=== PATIENT | female | born 1985 | race African-American/Black ===

== ENCOUNTER 2018-10-10 12:07 | Emergency (ER) | payer MEDICAID ==
[~2018-10-10] VITALS: Wt 106.0 kg
[~2018-10-10 12:07] MED LIST: PREN1TAB49
[2018-10-10] MEDS ORDERED: KETOROLAC 30 MG INJ IM STA (14:00)
[2018-10-10] MEDS ORDERED: IBUP-1542 PO (14:26)
--- NOTE | 2018-10-10 17:15 | ERD ---
ER Documentation Chief Complaint Chief Complaint ABD PAIN X 2 DAYS HPI 33-year-old female presents for abdominal pain times 2 days. The pain is located in the periumbilical area. She notes that it is intermittent, rated 6 out of 10, pain described as dull. She admits to some nausea, denies vomiting or diarrhea. Denies any fevers or chills. No other complaints. ROS All systems reviewed and are negative except as per history of present illness. Medications Home Meds Active Scripts Ibuprofen* (Motrin*) 600 Mg Tab, 600 MG PO Q6H PRN for PAIN AND OR ELEVATED TEMP, #30 TAB Prov:MADIHA MARTINEZ DO 10/10/18 Reported Medications Vits W-Ca,Fe,Fa(<1MG) () 1 Tab Tablet 07/21/10 Vits W-Ca,Fe,Fa(<1MG) () 1 Tab Tablet 07/09/10 Allergies Allergies: Coded Allergies: No Known Drug Allergy (Verified Allergy, Unknown, 03/29/14) PMhx/Soc History of Surgery: Yes ( x 2) Anesthesia Reaction: No Hx Neurological Disorder: No Hx Respiratory Disorders: No Hx Cardiac Disorders: No Hx Psychiatric Problems: No Hx Miscellaneous Medical Probl: No Hx Alcohol Use: No Hx Substance Use: No Hx Tobacco Use: Yes (2 CIGARETTES EVERY OTHER DAY) Smoking Status: Current every day smoker Physical Exam Vitals Temperature 98.9, pulse 99, respiration 18, blood pressure 119/84 Physical Exam Const: No acute distress Resp: Clear to auscultation bilaterally Cardio: Regular rate and rhythm, no murmurs Abd: Soft, non distended. Normal bowel sounds, mild periumbilical tenderness to palpation, no McBurney's point tenderness, no Fierro sign, no rebound or guarding noted Skin: No petechiae or rashes Back: No midline or flank tenderness Ext: No cyanosis, or edema Neur: Awake and alert Psych: Normal Mood and Affect Results 24 hrs Laboratory Tests Test 10/10/18 14:04 POC Beta HCG, Qualitative NEGATIVE Current Medications Medications Dose Sig/Lupillo Start Time Status Last (Trade) Ordered Route PRN Stop Time Admin Dose Reason Admin Ketorolac 30 mg ONCE STAT 10/10/18 DC Tromethamine IM 14:00 (Toradol) 10/10/18 14:14 Procedures/MDM Medical Decision Making: Differential diagnosis includes but not limited to acute gastritis, acute gastroenteritis, appendicitis, cholecystitis, pancreatitis. Patient appeared well on physical exam. Nontoxic appearing. Abdominal examination was relatively benign. Labs and imaging ordered however patient refused. Patient states that she only wants pain medication. UA was negative Toradol shot was given with improvement in symptoms Prescription(s): Patient given prescription for Motrin. Due to incomplete workup, patient's abdominal pain is nonspecific at this point. There is however low suspicion for acute abdomen given patient's benign abdominal examination and patient appeared well. Patient advised to follow up with PCP in 1-2 days. Patient advised to return to ED for new or worsening symptoms. Patient stable on discharge from the ED. Disclaimer: Inadvertent spelling and grammatical errors are likely due to EHR/dictation software use and do not reflect on the overall quality of patient care. Also, please note that the electronic time recorded on this note does not necessarily reflect the actual time of the patient encounter. Departure Diagnosis: Primary Impression: Abdominal pain Abdominal location: generalized Qualified Codes: R10.84 - Generalized abdominal pain Condition: Fair Patient Instructions: Abdominal Pain Additional Instructions: Call your primary care doctor TOMORROW for an appointment during the next 1-2 days.See the doctor sooner or return here if your condition worsens before your appointment time. MADIHA MARTINEZ DO Oct 10, 2018 17:15
== END 2018-10-10 14:27 | disposition home or self-care (01) ==
LOC: FTE 12:07
DX: R10.84 Generalized abdominal pain (principal); F17.210 Nicotine dependence, cigarettes, uncomplicated
CPT/HCPCS: 81025; Z7502; 99282; J1885